=== PATIENT | male | born 1985 | race Caucasian/White ===

== ENCOUNTER 2017-10-29 02:46 | Emergency (ER) | payer OTHER ==
[~2017-10-29] VITALS: Ht 193 cm; Wt 199.6 kg
[2017-10-29 02:48] VITALS: Ht 193 cm; Wt 199.6 kg
[2017-10-29 04:32] LABS: CHLORIDE SERUM 101 mmol/L (98-107); CREATININE SERUM 0.9 mg/dL (0.7-1.3); GFR1 > 60 mL/min; GLUCOSE SERUM 211 mg/dL (74-106); POTASSIUM SERUM 4.1 mmol/L (3.5-5.1); SODIUM SERUM 135 mmol/L (136-145)
[2017-10-29 04:33] LABS: BASOPHIL % 0.3 % (0-2); PLATELET COUNT 179 x10^3mcL (130-400); RED CELL DISTRIBUTION WIDTH 13.4 % (11.5-14.5)
[2017-10-29 04:37] LABS: ALKALINE PHOSPHATASE 95 U/L (46-116); ALT/SGPT 40 U/L (16-63); AST/SGOT 23 U/L (15-37); BILIRUBIN TOTAL 0.17 mg/dL (0.20-1.00); TOTAL PROTEIN, SERUM 6.7 g/dL (6.4-8.2)
[2017-10-29 04:41] LABS: ALBUMIN 3.1 g/dL (3.4-5.0)
[2017-10-29] MEDS ORDERED: ATORVASTATIN CA40 M1 PO (05:09)
[2017-10-29] MEDS ORDERED: NOR5 PO (05:09)
[2017-10-29] MEDS ORDERED: HYDROCHLOROTHIA25 MG PO (05:10)
[2017-10-29] MEDS ORDERED: ACT30 PO (05:10)
[2017-10-29] MEDS ORDERED: BENAZEPRIL HYDR20 M1 PO (05:10)
[2017-10-29] MEDS ORDERED: METFORMIN HCL1000 MG PO (05:10)
[2017-10-29 06:58] VITALS: BP 135/91
== END 2017-10-29 06:58 | disposition home or self-care (01) ==
LOC: ED 02:46
PROVIDERS: Emergency Medicine Emergency Medical Services
DX: G47.33 Obstructive sleep apnea (adult) (pediatric) (principal); E11.65 Type 2 diabetes mellitus with hyperglycemia; I10 Essential (primary) hypertension; E66.01 Morbid (severe) obesity due to excess calories
CPT/HCPCS: 36415; 83880; 85378; Q0092

== ENCOUNTER 2018-10-05 22:15 | Emergency (ER) | payer OTHER ==
[~2018-10-05] VITALS: Ht 193 cm; Wt 190.5 kg
[~2018-10-05 22:15] MED LIST: ACT30 PO; ATORVASTATIN CA40 M1 PO; BENAZEPRIL HYDR20 M1 PO; HYDROCHLOROTHIA25 MG PO; METFORMIN HCL1000 MG PO; NOR5 PO
[2018-10-05 22:22] VITALS: Ht 193 cm; Wt 190.5 kg
[2018-10-05 23:10] LABS: BASOPHIL % 0.4 % (0-2); PLATELET COUNT 204 x10^3mcL (130-400); RED CELL DISTRIBUTION WIDTH 13.7 % (11.5-14.5)
[2018-10-05 23:17] LABS: CALCIUM 8.5 mg/dL (8.5-10.1); CARBON DIOXIDE 24.6 mmol/L (21-32); CHLORIDE SERUM 100 mmol/L (98-107); CREATININE SERUM 0.9 mg/dL (0.7-1.3); GFR1 > 60 mL/min; GLUCOSE SERUM 125 mg/dL (74-106); POTASSIUM SERUM 3.8 mmol/L (3.5-5.1); SODIUM SERUM 134 mmol/L (136-145)
[2018-10-05 23:32] LABS: FREE T4 1.09 ng/dL (0.76-1.46); FREE THYROXINE INDEX 2.2 ug/dL (1.4-4.5); T4(THYROXINE) 5.4 ug/dL (4.7-13.3)
[2018-10-05 23:33] LABS: ALKALINE PHOSPHATASE 112 U/L (46-116); ALT/SGPT 59 U/L (16-63); AST/SGOT 31 U/L (15-37); BILIRUBIN TOTAL 0.29 mg/dL (0.20-1.00); LIPASE 164 IU/L (73-393); TOTAL PROTEIN, SERUM 6.9 g/dL (6.4-8.2)
[2018-10-05 23:46] LABS: ALBUMIN 3.2 g/dL (3.4-5.0); CHOLESTEROL 127 mg/dL (<200); CHOLESTEROL/HDL RATIO 4.4; HDL CHOLESTEROL 29 mg/dL (40-60); TRIGLYCERIDES 466 mg/dL (<150)
[2018-10-05 23:55] LABS: microscopic required? NO
[2018-10-06 00:29] VITALS: BP 125/769
[2018-10-06 00:40] LABS: T3 TOTAL 0.99 ng/mL
[2018-10-06 00:54] LABS: UA SPECIFIC GRAVITY 1.015 (1.005-1.035); urine erythrocyte NEGATIVE (NEGATIVE)
== END 2018-10-06 00:29 | disposition home or self-care (01) ==
LOC: ED 22:15
PROVIDERS: Specialist
DX: I10 Essential (primary) hypertension (principal); F41.9 Anxiety disorder, unspecified; F19.10 Other psychoactive substance abuse, uncomplicated; E66.01 Morbid (severe) obesity due to excess calories; E11.9 Type 2 diabetes mellitus without complications
CPT/HCPCS: 36415; 83880; 84439; Q0092

== ENCOUNTER 2020-01-08 18:21 | Emergency (ER) | payer OTHER ==
[~2020-01-08] VITALS: Ht 193 cm; Wt 170.1 kg
[2020-01-08 18:28] VITALS: Ht 193 cm; Wt 170.1 kg
[2020-01-08 19:59] VITALS: BP 133/90
== END 2020-01-08 19:59 | disposition home or self-care (01) ==
LOC: ED 18:21
DX: S63.92XA Sprain of unspecified part of left wrist and hand, initial encounter (principal); I10 Essential (primary) hypertension; E11.9 Type 2 diabetes mellitus without complications; E66.9 Obesity, unspecified; V49.49XA Driver injured in collision with other motor vehicles in traffic accident, initial encounter; Y93.I9 Activity, other involving external motion; Y92.488 Other paved roadways as the place of occurrence of the external cause; Y99.8 Other external cause status
CPT/HCPCS: Q0092